=== PATIENT | female | born 1950 | race Caucasian/White ===

== ENCOUNTER 2024-07-08 08:16 | Day surgery (SDC) | payer MEDICARE, SELFPAY ==
[2024-07-06 14:46] VITALS: BMI 25.4
--- NOTE | 2024-07-07 09:56 | HO.ANESPROP2 ---
Documented by User: Zee Rendon NP 07/07/24 09:56 HPI - Anesthesia Eval Consult details Narrative: 74yo F for Colonoscopy [facility] Past Medical History Medical History (Updated 07/06/24 @ 14:47 by Nathaly Ricci RN) HTN (hypertension) Surgical History Surgical History (Updated 07/06/24 @ 14:47 by Nathaly Ricci RN) H/O colonoscopy Social History Social History (Updated 07/06/24 @ 14:47 by Nathaly Ricci RN) Household Members: Spouse Patient Tobacco Use Status: Never used Tobacco Use of substances other than those prescribed or required for medical reasons: No Have you been hit, kicked, punched, or otherwise hurt by someone within the past year? If so, by whom?: No Are you DNR?: No Advance Directives: No Advance Directives Information Provided: Yes Recently lost weight without trying: No Nutrition Risks: No Nutritional Risk Meds Allergies Allergy/AdvReac Type Severity Reaction Status Date / Time No Known Allergies Allergy Verified 07/06/24 14:47 Home Medications ?Medication ?Instructions ?Recorded ?Confirmed ?Last Taken ?Type triamterene 37.5 1 cap PO DAILY 07/06/24 07/06/24 Unknown History mg-hydrochlorothiazide 25 mg capsule Exam Height,Weight and Vital Signs: Height 5 ft 4 in Weight 67.132 kg Assessment and Plan Assessment Anesthesia Assessment: Chart Reviewed Documented by User: Dwaine Sanchez MD 07/08/24 09:26 [facility] Past Medical History Medical History (Updated 07/06/24 @ 14:47 by Nathaly Ricci RN) HTN (hypertension) Family History Family history of problems with anesthesia: No Surgical History Surgical History (Updated 07/06/24 @ 14:47 by Nathaly Ricci RN) H/O colonoscopy History of Problems with Anesthesia: No Social History Social History (Updated 07/06/24 @ 14:47 by Nathaly Ricci RN) Household Members: Spouse Patient Tobacco Use Status: Never used Tobacco Use of substances other than those prescribed or required for medical reasons: No Have you been hit, kicked, punched, or otherwise hurt by someone within the past year? If so, by whom?: No Are you DNR?: No Advance Directives: No Advance Directives Information Provided: Yes Recently lost weight without trying: No Nutrition Risks: No Nutritional Risk Meds Allergies Allergy/AdvReac Type Severity Reaction Status Date / Time No Known Allergies Allergy Verified 07/06/24 14:47 Home Medications ?Medication ?Instructions ?Recorded ?Confirmed ?Last Taken ?Type triamterene 37.5 1 cap PO DAILY 07/06/24 07/06/24 Unknown History mg-hydrochlorothiazide 25 mg capsule Exam Airway Mallampati Class: II TM Dist: <=3cm Neck ROM: Full Loose/Missing/Broken Teeth: No Heart: ok Lungs: ok Assessment and Plan Assessment Anesthesia Assessment: Anesthesia Plan Discussed Final Anesthetic Review Family History of Problems with Anesthesia: No History of Problems with Anesthesia: No NPO: Yes ASA Class: II Final Preanesthetic Review: No Changes in Pt Med Stat, Meds/Allgs Chart Reviewed, Consent Obtained/Reviewed and Anes Risks/Benef Reviewed Patient Risk: Low Procedure Risk: Low Anesthetic Plan Anesthetic Plan: MAC: and Agree w/ Assess. and Plan Disposition: Standard PACU
[2024-07-08 08:42] VITALS: BMI 24.0
[2024-07-08 09:08] VITALS: BP 130/67; PULSE 84; RESP 16; TEMP 36.6; O2SAT 100
[2024-07-08] MEDS: Lactated Ringers 1,000 ML 100 ML IVCONT (09:09)
[2024-07-08 09:13] LABS: Glucose, Whole Blood 67 mg/dL (60-115)
--- NOTE | 2024-07-08 09:14 | PC.NURSE ---
Pt reports she passed out last night however did not fall. Has had episodes in past like this due to not eating. Blood sugar checked pre op 67. 250 D5 given; repeat sugar to be performed at [address] Saldaña and Dr Sanchez aware and verbal ok to proceed received.
--- NOTE | 2024-07-08 09:24 | PC.NURSE ---
Second bag of D5W hung per verbal order of Dr Sanchez.
[2024-07-08 09:36] LABS: Glucose, Whole Blood 139 mg/dL (60-115)
[2024-07-08 10:23] VITALS: BP 102/62; PULSE 70; RESP 16; TEMP 36.4; O2SAT 99
--- NOTE | 2024-07-08 10:26 | PM.OP ---
Brief Operative Note Date of Service: 07/08/24 Pre-op diagnosis: Screening Post-op diagnosis: other (Diverticulosis) Procedure: Colonoscopy to the cecum Surgeon: Candelario Saldaña MD Anesthesia: MAC Was an Certification Officer used for this Procedure?: No Estimated blood loss (mL): 0 Pathology: none sent Condition: stable Disposition: PACU
--- NOTE | 2024-07-08 10:45 | OP_ITS ---
DATE OF SERVICE: 07/08/2024 SURGEON: Candelario Saldaña MD INDICATIONS: The patient presents for evaluation of colorectal cancer screening. Full consent has been obtained from her for this, including risks of bleeding and perforation. PREOPERATIVE DIAGNOSIS: Colorectal cancer screening. POSTOPERATIVE DIAGNOSIS: PROCEDURE PERFORMED: Colonoscopy to the cecum. ESTIMATED BLOOD LOSS: COMPLICATIONS: ANESTHESIA: Monitored anesthesia care. ASSISTANTS: SPECIMENS: POSTOPERATIVE DIAGNOSES: Colorectal cancer screening, diverticulosis, and internal hemorrhoids. DESCRIPTION OF PROCEDURE: The patient was placed in the left lateral decubitus position. The digital rectal exam revealed no abnormalities. The Olympus video pediatric colonoscope was entered into the rectum and advanced easily to the cecum. Once in the cecum, I did identify normal-appearing cecal pouch with appendiceal orifice and a normal-appearing ileocecal valve. The entire cecum and ileocecal valve appeared normal. The appendiceal orifice appeared normal. The scope was slowly withdrawn assessing all mucosal surfaces carefully. Preparation was excellent. I did not visualize any sign of polyps, colitis, nor angiodysplasia. There was a mild amount of sigmoid diverticulosis. In the rectum, scope was retroflexed visualizing internal hemorrhoids, but no other pathology. The rectal mucosa appeared normal. The scope was straightened and withdrawn from the patient. She tolerated the procedure well and was returned to the recovery area in stable condition. IMPRESSION: 1. Mild diverticulosis. 2. Internal hemorrhoids. PLAN: Given today's negative exam and her age, I do not think she would need any further screening colonoscopies. She will otherwise see me on a p.r.n. basis. Candelario Saldaña MD RMTimur/MODL / [id number]
--- OUTSIDE RECORDS SUMMARY | 2024-07-13 05:24 | XMS_ITS ---
Author Organization [facility] Address [address] [place] [address] Care Team Providers Care Cab Worker Name Role Phone Roxane Anna HOFFMANN Primary Care Provider Candelario Lang [phone] REASON FOR VISIT screening Encounters Encounter Location Date Provider Diagnosis [facility] Outpatient [address], [place] [phone] 07/08/2024 Candelario Saldaña PLAN OF TREATMENT No Information
--- OUTSIDE RECORDS SUMMARY | 2024-07-13 05:24 | XMS_ITS | Patient Health Record ---
Author Organization [facility] Address [address] [place] [address] Care Team Providers Care Patent Prosecution Attorney Name Role Phone Roxane Anna HOFFMANN Primary Care Provider Michell Saldaña Candelario Unavailable [phone] ALLERGIES No Known Allergies RESULTS Component Value Reference Range Notes Glucose, Whole Blood Reviewed date:07/08/2024 04:30:32 PM Interpretation: Performing Lab:[facility], [address] [place] [id number] Notes/Report: Glucose, Whole Blood 67 60-115 mg/dL METER # : [id number] Glucose, Whole Blood Reviewed date:07/08/2024 04:30:25 PM Interpretation: Performing Lab:[facility], [address] [place] [id number] Notes/Report: Glucose, Whole Blood 139 60-115 mg/dL METER # : [id number] REASON FOR REFERRAL No Information MEDICATIONS Medication SIG (Take, Route, Frequency, Duration) Notes Start Date End Date Status Triamterene-HCTZ 37.5-25 MG Oral for 90 Active SOCIAL HISTORY Sex Assigned At : Social History Observation Description Sex Assigned At Unknown PROBLEMS Problem Type ICD Code Onset Dates Problem Status W/U Status Risk SNOMED Code Notes Problem Colon cancer screening (Z12.11) Active confirmed Colon cancer screening (732842898) Problem Encounter for other preprocedural examination (Z01.818) Active confirmed Pre-procedure evaluation check (468398539) VITAL SIGNS Blood pressure diastolic 00 mm Hg 03/23/2024 Height 64 in 03/23/2024 Blood pressure systolic 00 mm Hg 03/23/2024 Weight 148 lbs 03/23/2024 BMI 25.40 kg/m2 03/23/2024 Encounters Encounter Location Date Provider Diagnosis [facility] Outpatient [address] [place], [place] [phone] 07/08/2024 Candelario Saldaña [facility] [address] [place] [address] 03/23/2024 Candelario Saldaña Colon cancer screeni ng Z12.11 and Encounter for other preprocedural examination Z01.818 ASSESSMENTS Encounter Date Diagnosis Assessment Notes Treatment Notes Treatment Clinical Notes 03/23/2024 Colon cancer screening (ICD-10 - Z12.11) Do not use the Triamterene/HCTZ diuretic the day before nor on the day of the colonoscopy 03/23/2024 Encounter for other preprocedural examination (ICD-10 - Z01.818) PLAN OF TREATMENT Future Test Test Name Order Date COLONOSCOPY 04/27/2012 COLONOSCOPY 03/23/2024 Insurance Providers Payer Name Payer Address Payer Phone Subscriber Number Group Number Insured Name Patient Relationship to Insured Coverage Start Date Coverage End Date [facility] [address] [place] [phone] [id number] NASRIN JON Self - patient is the insured MEDICAL (GENERAL) HISTORY Medical History History ICD Code Denies [place],DM,CVA,Lung disease,renal dise ase Negative screening colonoscopy in 2011 Surgical History Surgery Date(Month/Year)
--- OUTSIDE RECORDS SUMMARY | 2024-07-13 05:24 | XMS_ITS ---
Author Organization [facility] Address [address] [place] [address] Care Team Providers Care Marine Resource Economist Name Role Phone Roxane Anna HOFFMANN Primary Care Provider Candelario Lang [phone] ALLERGIES No Known Allergies REASON FOR VISIT Patient presents today for a colon screening MEDICATIONS Medication SIG (Take, Route, Frequency, Duration) Notes Start Date End Date Status Triamterene-HCTZ 37.5-25 MG Oral for 90 Active SOCIAL HISTORY Tobacco Use: Social History Observation Description Date Details (start date - stop date) Never Smoker NA - NA Sex Assigned At : Social History Observation Description Sex Assigned At Unknown Tobacco Use/Smoking Question Answer Notes Patient is a nonsmoker Alcohol Screen Question Answer Notes Did you have a drink containing alcohol in the p ast year? No Points 0 Interpretation Negative PROBLEMS Problem Type ICD Code Onset Dates Problem Status W/U Status Risk SNOMED Code Notes Problem Colon cancer screening (Z12.11) Active confirmed Colon cancer screening (701594178) Problem Encounter for other preprocedural examination (Z01.818) Active confirmed Pre-procedure evaluation check (107416342) VITAL SIGNS BMI 25.40 kg/m2 03/23/2024 Blood pressure systolic 00 mm Hg 03/23/20 24 Blood pressure diastolic 00 mm Hg 024 Height 64 in 03/23/2024 Weight 148 lbs 03/23/2024 Encounters Encounter Location Date Provider Diagnosis [facility] [address] [place] [phone] 03/23/2024 Candelario Saldaña Colon cancer screeni ng Z12.11 and Encounter for other preprocedural examination Z01.818 ASSESSMENTS Encounter Date Diagnosis Assessment Notes Treatment Notes Treatment Clinical Notes 03/23/2024 Colon cancer screening (ICD-10 - Z12.11) Do not use the Triamterene/HCTZ diuretic the day before nor on the day of the colonoscopy 03/23/2024 Encounter for other preprocedural examination (ICD-10 - Z01.818) PLAN OF TREATMENT Treatment Notes Assessment Notes Colon cancer screening Do not use the Tr iamterene/HCTZ diuretic the day before nor on the day of the colonoscopy Future Test Test Name Order Date COLONOSCOPY 03/23/2024 Next Appt Details Follow Up: prn, Reason: Progress Notes * Examination Category Sub-Category Detail Notes General Examination GENERAL APPEARANCE: pleasant , well nourished, well developed, in no acute distress , pleasant, well nourished, well developed, in no acute distress EYES: sclera non-icteric , sclera non-icteric NECK/THYROID: no cervical lymphade nopathy, neck supple , no cervical lymphadenopathy, neck supple HEART: S1, S2 normal , S1, S2 normal LUNGS: clear to auscultatio n bilaterally , clear to auscultation bilaterally ABDOMEN: normal bowel sounds, no guarding or rigidity, no hepatosplenomegaly, no masses palpable, soft, nontender, nondistended. , normal bowel sounds, no guarding or rigidity, no hepatosplenomegaly, no masses palpable, soft, nontender, nondistended. NEUROLOGIC: alert and oriented , alert and oriented SKIN: nonjaundiced, no spi guerrero angiomata. , nonjaundiced, no spider angiomata. EXTREMITIES: no edema , no edema ORAL CAVITY: mucosa moist , mucos a moist
== END 2024-07-08 11:33 | disposition home or self-care (01) ==
PROVIDERS: PCP Nurse Practitioner Family; Visit Provider Internal Medicine
PROC: 0DJD8ZZ Inspection of Lower Intestinal Tract, Via Natural or Artificial Opening Endoscopic (ICD-10-PCS; CPT 45378; principal; 2024-07-08 09:30)
DX: Z12.11 Encounter for screening for malignant neoplasm of colon (principal); K57.30 Diverticulosis of large intestine without perforation or abscess without bleeding; K64.8 Other hemorrhoids; R73.9 Hyperglycemia, unspecified; I10 Essential (primary) hypertension
CPT/HCPCS: G0121; 82947; J2003; J2704